=== PATIENT | male | born 1995 | race Hispanic/Latino ===

== ENCOUNTER 2017-11-11 11:07 | Emergency (ER) | payer SELFPAY ==
[2017-11-11 11:25] VITALS: TEMP 98.9
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
--- NOTE | 2017-11-11 11:58 | RAD ---
EXAM DESCRIPTION: FIVE VIEW CERVICAL SPINE CLINICAL HISTORY: NUMBNESS L HAND COMPARISON: None Available. TECHNIQUE: AP/lateral/ both oblique/open-mouth odontoid FINDINGS: There is good alignment of the cervical spine. There is no bone lesion or fracture. There are no significant degenerative changes. There is no soft tissue abnormality identified. IMPRESSION: Normal cervical spine series Electronically signed by: Adama Draper MD 11/11/2017 11:57 AM CDT
--- NOTE | 2017-11-11 11:59 | RAD ---
EXAM DESCRIPTION: Shoulder,Left 2 or More Views CLINICAL HISTORY: NUMBNESS L HAND COMPARISON: None. TECHNIQUE: 2 views left FINDINGS: Marked acromioclavicular and coracoclavicular ligament separation is observed. No fractures observed. The glenohumeral joint is unremarkable. IMPRESSION: Marked acromioclavicular and coracoclavicular ligament separation is observed. Electronically signed by: Adama Draper MD 11/11/2017 11:58 AM CDT
[2017-11-11 13:11] VITALS: BP 144/87; O2SAT 97
== END 2017-11-11 13:11 | disposition home or self-care (01) ==
LOC: ER 11:07
DX: S43.102A Unspecified dislocation of left acromioclavicular joint, initial encounter (principal); X58.XXXA Exposure to other specified factors, initial encounter

== ENCOUNTER 2018-12-13 17:37 | Emergency (ER) | payer SELFPAY ==
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
[2018-12-13] MEDS ORDERED: IBUPROFEN 200 MG TAB PO ONE (18:40)
[2018-12-13] MEDS ORDERED: CYCLOBENZAPRINE HCL 5 MG TAB PO ONE (18:40)
[2018-12-13 18:56] VITALS: BP 126/77; TEMP 98.4; O2SAT 97
== END 2018-12-13 18:56 | disposition home or self-care (01) ==
LOC: ER 17:37
DX: S13.4XXA Sprain of ligaments of cervical spine, initial encounter (principal); R51 Headache; E11.9 Type 2 diabetes mellitus without complications; V49.49XA Driver injured in collision with other motor vehicles in traffic accident, initial encounter; Y92.410 Unspecified street and highway as the place of occurrence of the external cause; Z79.84 Long term (current) use of oral hypoglycemic drugs; Z79.899 Other long term (current) drug therapy

== ENCOUNTER 2019-03-30 12:36 | Emergency (ER) | payer SELFPAY ==
[2019-03-30] MEDS ORDERED: IBUPROFEN 200 MG TAB PO ONE (12:52)
[2019-03-30] MEDS ORDERED: traMADol HCL 50 MG TAB PO ONE (12:52)
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
[2019-03-30 15:25] VITALS: BP 134/86; TEMP 97.9; O2SAT 95
== END 2019-03-30 14:55 | disposition home or self-care (01) ==
LOC: ER 12:36
DX: S46.012A Strain of muscle(s) and tendon(s) of the rotator cuff of left shoulder, initial encounter (principal); E11.9 Type 2 diabetes mellitus without complications; W17.89XA Other fall from one level to another, initial encounter; Z79.84 Long term (current) use of oral hypoglycemic drugs; Y92.9 Unspecified place or not applicable

== ENCOUNTER 2019-07-24 19:56 | Emergency (ER) | payer SELFPAY ==
[2019-07-24 20:09] VITALS: TEMP 99.1
--- NOTE | 2019-07-24 20:09 | ED.PDOC ---
History of Present Illness - General Chief Complaint: General Stated Complaint: fatigue, weak, N/V/D since 0230 Time Seen by Provider: 07/24/19 20:08 Source: patient - History of Present Illness Initial Comments: 23 yo male who presents with cc of nausea and vomiting and acute illness. Reports onset of illness at 2:30 am today with nausea and NBNB emesis x4 hours. Reports also cold sweats and chills but no fevers. Has been resting all day and sx's returned again at 4:30 pm after trying to eat a little food. States altogether has had about 6 episode of emesis. States also moderate upper abdominal cramping which is constant and worse with vomiting. Reports additionally watery diarrhea x3 today, sore throat, intermittent dry cough, generalized headache, body aches, malaise, fatigue. No known recent sick contacts, has not had flu shot. Tried Tylenol earlier with modest relief of headache. Allergies/Adverse Reactions: Allergies NO KNOWN ALLERGY Allergy (Verified 07/24/19 20:09) Home Medications: Ambulatory Orders RX: Metformin HCl [Metformin Hydrochloride] 1,000 mg PO BID 12/13/18 Ondansetron Odt [Zofran ODT] 8 mg PO Q8H PRN 3 Days #10 tab 07/24/19 Review of Systems - Review of Systems Review of Systems: 07/24/19 20:27 as per HPI All other Systems: Reviewed and Negative Past Medical History (General) - Patient Medical History Hx Stroke: No Hx of COPD: No Hx Cardiac Disorders: No Hx Congestive Heart Failure: No Hx Hypertension: No Hx Diabetes: Yes Hx Cancer: No - Vaccination History Hx Tetanus, Diphtheria Vaccination: No Hx Influenza Vaccination: No Hx Pneumococcal Vaccination: No - Social History Hx Tobacco Use: No Hx Alcohol Use: No Hx Substance Use: No Hx Substance Use Treatment: No Hx Depression: No - Female History Patient : No Family Medical History - Family History Father Living Status: Hx Family Diabetes: Yes Hx Family Cancer: Yes - dad-kidney Mother Family History: Unknown Living Status: Still Living Physical Exam - Physical Exam General Appearance: Alert, No apparent distress Eye Exam: bilateral normal Ears, Nose, Throat: hearing grossly normal, normal ENT inspection, normal pharynx Neck: non-tender, full range of motion, supple, normal inspection Respiratory: lungs clear, normal breath sounds, no respiratory distress Cardiovascular/Chest: normal peripheral pulses, regular rate, rhythm, no edema, no murmur Peripheral Pulses: radial,right: 2+, radial,left: 2+ Gastrointestinal/Abdominal: normal bowel sounds, no organomegaly, other - moderate ttp epigastric and LUQ, mild suprapubic ttp without guarding or rebound Back Exam: normal inspection, no CVA tenderness, no vertebral tenderness Extremity: normal range of motion, non-tender, normal inspection, no pedal edema, no calf tenderness, normal capillary refill 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 Consider also viral gastroenteritis vs strep vs viral URI vs pancreatitis vs UTI vs other -labs, place PIV, 1 L NS bolus, Zofran 4 mg IV, Toradol 30 mg IV for headache, strep, flu, UA 07/25/19 06:52 -Pt with neg flu & strep. Labs reveal slight AST/ALT elevation and T bili (indirect) elevation. CT A/P reveals hepatosplenomegaly, no other acute processes. [facility] is negative. Suspect LFT abnormalities due to acute viral illness. Discussed all the above at length with pt - he will need to f/u closely with PCP for repeat LFT's and for f/u of HSM. Advised no contact sports until cleared - discussed risks of possible splenic rupture while spleen is enlarged. -dc home in fair condition, feeling markedly improved, return warnings discussed at length. Hep panel acute sent and will follow Stewart Olivas MD Billing #[id number] - Results/Orders Results/Orders: 07/24/19 20:08 IV Care:Saline Lock per Protoc QSHIFT 07/24/19 20:55 STREP A SCREEN CULTURE Stat 07/24/19 21:04 Hold Metformin x 48Hrs [id number] 07/24/19 22:48 HEPATITIS ACUTE PROFILE, ABC Stat Laboratory Results - last 24 hr 07/24/19 07/24/19 07/24/19 20:15 20:15 20:15 WBC 7.3 RBC 5.30 Hgb 16.0 Hct 44.4 MCV 83.8 MCH 30.1 MCHC 35.9 RDW 13.0 Plt Count 144 MPV 8.2 Absolute Neuts (auto) 5.20 Absolute Lymphs (auto) 1.30 Absolute Monos (auto) 0.50 Absolute Eos (auto) 0.10 Absolute Basos (auto) 0.10 Neutrophils % 72.1 Lymphocytes % 18.3 L Monocytes % 6.6 Eosinophils % 1.9 Basophils % 1.1 Sodium 131 L Potassium 3.5 L Chloride 96 L Carbon Dioxide 23 Anion Gap 15.5 BUN 14 Creatinine 0.60 BUN/Creatinine Ratio 23.3 H Random Glucose 326 H Serum Osmolality Not Reportable Calcium 9.2 Total Bilirubin 1.7 H Direct Bilirubin < 0.1 Indirect Bilirubin 1.6 H AST 58 H ALT 99 H Alkaline Phosphatase 90 Serum Total Protein 7.9 Albumin 4.5 Lipase 38 Urine Color Urine Appearance Urine pH Ur Specific [place] Urine Protein Urine Glucose (UA) Urine Ketones Urine Blood Urine Nitrite Urine Bilirubin Urine Urobilinogen Ur Leukocyte Esterase Urine RBC Urine WBC Ur Epithelial Cells Urine Bacteria Monoscreen Negative Group A Strep Rapid 07/24/19 07/24/19 20:55 22:10 WBC RBC Hgb Hct MCV MCH MCHC RDW Plt Count MPV Absolute Neuts (auto) Absolute Lymphs (auto) Absolute Monos (auto) Absolute Eos (auto) Absolute Basos (auto) Neutrophils % Lymphocytes % Monocytes % Eosinophils % Basophils % Sodium Potassium Chloride Carbon Dioxide Anion Gap BUN Creatinine BUN/Creatinine Ratio Random Glucose Serum Osmolality Calcium Total Bilirubin Direct Bilirubin Indirect Bilirubin AST ALT Alkaline Phosphatase Serum Total Protein Albumin Lipase Urine Color Dk yellow Urine Appearance Clear Urine pH 5.5 Ur Specific [place] 1.010 Urine Protein 30 Urine Glucose (UA) 500 H Urine Ketones >=160 Urine Blood Trace-intact H Urine Nitrite Negative Urine Bilirubin Small H Urine Urobilinogen 2.0 H Ur Leukocyte Esterase Negative Urine RBC 0-1 Urine WBC 0-1 Ur Epithelial Cells 1-3 Urine Bacteria Rare Monoscreen Group A Strep Rapid Negative Departure - Departure Clinical Impression: Viral gastroenteritis, Hepatosplenomegaly, Elevated liver enzymes Time of Disposition: 22:27 Disposition: Discharge to Home or Self Care Condition: Fair Departure Forms: ED Discharge - Pt. Copy, Patient Portal Self Enrollment Instructions: Viral Gastroenteritis, Adult (DC) Diet: regular diet Activity: other - no contact sports or heavy physical activity until cleared by doctor Prescriptions: Ondansetron Odt [Zofran ODT] 8 mg PO Q8H PRN 3 Days #10 tab PRN Reason: Nausea Home Medications: Ambulatory Orders RX: Metformin HCl [Metformin Hydrochloride] 1,000 mg PO BID 12/13/18 Ondansetron Odt [Zofran ODT] 8 mg PO Q8H PRN 3 Days #10 tab 07/24/19 Additional Instructions: Follow up with your primary care doctor in next 5-7 days for repeat evaluation. You were noted to have elevation of your liver enzymes and an enlarged liver and spleen during this visit, which is likely due to acute illness but needs to be followed up closely in the clinic to check for other possible causes. Do not drink alcohol as this can be harmful to your liver. Return to the ED if you have worsening abdominal pain, nausea & vomiting, blood in the stool or large/frequent diarrhea, poor fluid intake, lack of urination for more than 8 hours, etc... Take the Zofran as directed for nausea. You will need doctor clearance before return to heavy physical activity or contact sports because of your large spleen. An injury to your abdomen could put you at risk for spleen rupture while it is enlarged which could be potentially life-threatening.
[2019-07-24] MEDS: SODIUM CHLORIDE 0.9% (FLUSH) 10 ML SYG IV PRN (20:34)
[2019-07-24] MEDS: KETOROLAC TROMETHAMINE INJ 30 MG/ML VIAL IV ONE (20:35)
[2019-07-24] MEDS: ONDANSETRON INJ 4 MG/2 ML VIAL IV ONE (20:35)
[2019-07-24] MEDS: SODIUM CHLORIDE 0.9% 1000ML 1,000 ML IVS ONE (20:35)
--- NOTE | 2019-07-24 21:56 | CT ---
PROCEDURE: Abdomen/Pelvis w/Contrast CLINICAL HISTORY: upper abd pain, n/v, elevated T bili TECHNIQUE: Contiguous axial images obtained through the abdomen and pelvis following the uneventful administration of IV contrast. Coronal and sagittal reformatted images were provided. This exam was performed according to our departmental dose-optimization program, which includes automated exposure control, adjustment of the mA and/or kV according to patient size and/or use of iterative reconstruction technique. COMPARISON: None available for comparison. FINDINGS: Lung bases: Clear Liver: The liver is enlarged and diffusely low in density compatible with steatosis. Gallbladder and biliary system: Unremarkable Pancreas: Unremarkable Spleen: The spleen is enlarged measuring 16.7 cm in craniocaudal dimension. Adrenals: Unremarkable Kidneys: Normal renal cortical enhancement. No calculi. No hydronephrosis. Bowel: No obstruction. No appreciable mucosal thickening. Appendix: Normal caliber appendix. No findings to suggest acute appendicitis. Urinary bladder: Unremarkable Reproductive: Unremarkable as visualized Lymph nodes: No pathologically enlarged lymph nodes. Peritoneum: No focal fluid collection. No free air. Vessels: No abdominal aortic aneurysm. Abdominal wall: Tiny fat-containing umbilical hernia. Bones: Mild multilevel spondylosis. No acute fracture. IMPRESSION: 1. No acute inflammatory process identified within the abdomen and pelvis. 2. Hepatosplenomegaly. Hepatic steatosis. 3. Other findings as above. Electronically signed by: Shaun Pizarro MD 07/24/2019 9:55 PM PODIATRY PROFESSOR
[2019-07-24] MEDS: ONDANSETRON ODT (ER DISP) 8 MG TAB PO ONE (22:52)
[2019-07-24 22:58] VITALS: BP 128/76; O2SAT 99
== END 2019-07-24 23:04 | disposition home or self-care (01) ==
LOC: ER 19:56
DX: A08.4 Viral intestinal infection, unspecified (principal); R16.2 Hepatomegaly with splenomegaly, not elsewhere classified; R94.5 Abnormal results of liver function studies; E11.9 Type 2 diabetes mellitus without complications; Z79.84 Long term (current) use of oral hypoglycemic drugs
CPT/HCPCS: 36415; 74177; 80048; 80074; 80076; 81001; 83690; 85025; 86403; 87070; 87502; 87880; J1885; J2405; J7030

== ENCOUNTER 2019-12-08 06:12 | Emergency (ER) | payer BC ==
[2019-12-08] MEDS ORDERED: SODIUM CHLORIDE 0.9% (FLUSH) 10 ML SYG IV PRN (06:31)
[2019-12-08] MEDS ORDERED: ONDANSETRON INJ 4 MG/2 ML VIAL IV ONE (06:31)
[2019-12-08] MEDS ORDERED: KETOROLAC TROMETHAMINE INJ 30 MG/ML VIAL IV ONE (06:31)
--- NOTE | 2019-12-08 06:35 | ED.PDOC ---
History of Present Illness - General Information Source: patient, RN notes reviewed, Vital Signs reviewed Exam Limitations: no limitations Additional Information: 24yo M no PMH with reported abdominal pain x 2 days. Reports pain is dull, intermittent, non-radiating located RUQ. Associated with non-bloody diarrhea. Otherwise denies fever, vomiting, chest pain, SOB, dysuria, testicular pain, sick contacts, recent travel, history of abdominal surgery. No other complaints at this time. - History of Present Illness Abdominal Pain Onset Location: RUQ Pain Radiation: no radiation Quality: moderate Improving Factors: nothing Worsening Factors: nothing Associated Symptoms: diarrhea <Eduardo Briceno - Last Filed: 12/08/19 07:03> <Oumar Herrera - Last Filed: 12/08/19 10:44> - General Chief Complaint: Abdominal Pain Stated Complaint: abdomen pain for 3 days Time Seen by Provider: 12/08/19 06:31 Review of Systems - Review of Systems Constitutional: States: no symptoms reported Respiratory: States: no symptoms reported Gastrointestinal/Abdominal: States: no symptoms reported, abdominal pain - RUQ Genitourinary: States: no symptoms reported Skin: States: no symptoms reported All other Systems: Reviewed and Negative <Eduardo Briceno Last Filed: 12/08/19 07:03> Past Medical History (General) - Patient Medical History Hx Seizures: No Hx Stroke: No Hx Dementia: No Hx Asthma: No Hx of COPD: No Hx Cardiac Disorders: No Hx Congestive Heart Failure: No Hx Pacemaker: No Hx Hypertension: No Hx Thyroid Disease: No Hx Diabetes: Yes Hx Gastroesophageal Reflux: No Hx Renal Disease: No Hx Cancer: No Hx of HIV: No Hx MRSA: No - Vaccination History Hx Tetanus, Diphtheria Vaccination: No Hx Influenza Vaccination: No Hx Pneumococcal Vaccination: No - Social History Hx Tobacco Use: No Hx Alcohol Use: No Hx Substance Use: No Hx Substance Use Treatment: No Hx Depression: No - Female History Patient : No <Eduardo Briceno Last Filed: 12/08/19 07:03> Family Medical History - Family History Father Living Status: Hx Family Diabetes: Yes Hx Family Cancer: Yes - dad-kidney Mother Family History: Unknown Living Status: Still Living <Eduardo Briceno - Last Filed: 12/08/19 07:03> Physical Exam - Physical Exam General Appearance: Alert, No apparent distress, Well Developed, Well Nourished Eyes, Ears, Nose, Throat Exam: PERRL/EOMI Neck: non-tender, full range of motion, supple Respiratory: chest non-tender, lungs clear, normal breath sounds Cardiovascular/Chest: regular rate, rhythm, no edema, no murmur Gastrointestinal/Abdominal: normal bowel sounds, non tender, soft Back Exam: no CVA tenderness Extremity: normal range of motion, no pedal edema Neurologic: soda column operator II-XII nml as tested, alert, normal mood/affect Skin Exam: normal color, warm/dry <Eduardo Briceno - Last Filed: 12/08/19 07:03> - Physical Exam Comments: Vital Signs - 24 hr 12/08/19 12/08/19 12/08/19 06:20 06:29 07:12 Temperature 98.2 F Pulse Rate [ 87 65 monitor] Respiratory 18 18 16 Rate Blood Pressure 155/94 132/62 [left forearm] O2 Sat by Pulse 100 97 Oximetry 12/08/19 12/08/19 12/08/19 08:00 09:00 10:00 Temperature Pulse Rate [ 69 66 72 monitor] Respiratory 16 16 18 Rate Blood Pressure 132/62 132/67 141/74 [left forearm] O2 Sat by Pulse 96 97 99 Oximetry <Oumar Herrera - Last Filed: 12/08/19 10:44> Progress - Progress Progress: 12/08/19 10:37 The patient is a 24-year-old male presents emergency room with abdominal pain. The patient has significant uncontrolled diabetes and dehydration related to that. This is probably what is been giving him his abdominal discomfort. He received a liter of IV fluids and a shot of insulin. He is doing a little better by time of discharge. He is to record his blood sugars twice daily before meals. He is to continue the metformin for now. This may be the source of some of his diarrhea however. I am going to add low-dose glipizide to the patient. He needs to follow back up with his primary care doctor next week for reevaluation of his diabetes management. He also needs to maintain a diabetic diet. The patient does have a fatty liver as noted on the ultrasound. He may benefit from significant weight loss to prevent long-term damage to the liver. No evidence of any significant gallbladder disease. No evidence of any infectious process otherwise at this time. ER warnings are given for any worsening. 12/08/19 10:38 oumar herrera [id number] - Results/Orders Results/Orders: Right upper quadrant ultrasound shows mild hepatic steatosis with associated hepatomegaly. 4 mm gallbladder polyp and common bile duct is 2.5 mm. Laboratory Tests 12/08/19 12/08/19 12/08/19 06:40 06:40 06:40 WBC 6.7 RBC 5.48 Hgb 15.8 Hct 45.6 MCV 83.3 MCH 28.9 MCHC 34.7 RDW 12.8 Plt Count 180 MPV 8.2 Absolute Neuts (auto) 3.10 Absolute Lymphs (auto) 3.00 Absolute Monos (auto) 0.40 Absolute Eos (auto) 0.20 Absolute Basos (auto) 0.10 Neutrophils % 45.8 Lymphocytes % 43.9 Monocytes % 6.0 Eosinophils % 3.0 Basophils % 1.3 Sodium 130 L Potassium 3.9 Chloride 99 L Carbon Dioxide 23 Anion Gap 11.9 L BUN 24 H Creatinine 0.60 BUN/Creatinine Ratio 40.0 H Random Glucose 380 H Serum Osmolality 280.5 Calcium 9.0 Total Bilirubin 0.7 Direct Bilirubin 0.1 Indirect Bilirubin 0.6 AST 36 ALT 67 H Alkaline Phosphatase 92 Serum Total Protein 7.2 Albumin 4.1 Lipase 44 Urine Color Urine Appearance Urine pH Ur Specific [place] Urine Protein Urine Glucose (UA) Urine Ketones Urine Blood Urine Nitrite Urine Bilirubin Urine Urobilinogen Ur Leukocyte Esterase Urine RBC Urine WBC Ur Epithelial Cells Urine Bacteria 12/08/19 06:40 WBC RBC Hgb Hct MCV MCH MCHC RDW Plt Count MPV Absolute Neuts (auto) Absolute Lymphs (auto) Absolute Monos (auto) Absolute Eos (auto) Absolute Basos (auto) Neutrophils % Lymphocytes % Monocytes % Eosinophils % Basophils % Sodium Potassium Chloride Carbon Dioxide Anion Gap BUN Creatinine BUN/Creatinine Ratio Random Glucose Serum Osmolality Calcium Total Bilirubin Direct Bilirubin Indirect Bilirubin AST ALT Alkaline Phosphatase Serum Total Protein Albumin Lipase Urine Color Yellow Urine Appearance Clear Urine pH 7.0 Ur Specific [place] 1.025 Urine Protein Negative Urine Glucose (UA) 500 H Urine Ketones 15 H Urine Blood Trace-intact H Urine Nitrite Negative Urine Bilirubin Negative Urine Urobilinogen 0.2 Ur Leukocyte Esterase Negative Urine RBC 0-1 Urine WBC 3-5 H Ur Epithelial Cells 0-1 Urine Bacteria 0 <Oumar Herrera L - Last Filed: 12/08/19 10:44> Departure <Eduardo Briceno - Last Filed: 12/08/19 07:03> - Departure Diet: diabetic diet Activity: increase activity as tolerated <Oumar Herrera - Last Filed: 12/08/19 10:44> - Departure Clinical Impression: Hepatic steatosis, Dehydration, Abdominal cramping Uncontrolled type 2 diabetes mellitus Qualifiers: Glycemic state: with hyperglycemia Qualified Code(s): E11.65 - Type 2 diabetes mellitus with hyperglycemia Disposition: Discharge to Home or Self Care Condition: Fair Departure Forms: ED Discharge - Pt. Copy, Patient Portal Self Enrollment Instructions: Type 2 Diabetes, Diabetes Diet Prescriptions: glipiZIDE [Glucotrol] 5 mg PO DAILY #20 tab Home Medications: Ambulatory Orders Metformin HCl [Metformin Hydrochloride] 1,000 mg PO BID 12/13/18 glipiZIDE [Glucotrol] 5 mg PO DAILY #20 tab 12/08/19 Additional Instructions: The patient is a 24-year-old male presents emergency room with abdominal pain. The patient has significant uncontrolled diabetes and dehydration related to that. This is probably what is been giving him his abdominal discomfort. He received a liter of IV fluids and a shot of insulin. He is doing a little better by time of discharge. He is to record his blood sugars twice daily before meals. He is to continue the metformin for now. This may be the source of some of his diarrhea however. I am going to add low-dose glipizide to the patient. He needs to follow back up with his primary care doctor next week for reevaluation of his diabetes management. He also needs to maintain a diabetic diet. The patient does have a fatty liver as noted on the ultrasound. He may benefit from significant weight loss to prevent long-term damage to the liver. No evidence of any significant gallbladder disease. No evidence of any infectious process otherwise at this time. ER warnings are given for any worsening.
[2019-12-08] MEDS ORDERED: INSULIN LISPRO 100 UNITS/ML PEN SUBCU ONE (08:24)
[2019-12-08] MEDS ORDERED: SODIUM CHLORIDE 0.9% 1000ML 1,000 ML IVS ONE (08:24)
--- NOTE | 2019-12-08 10:13 | US ---
EXAM DESCRIPTION: Abdomen,Limited CLINICAL HISTORY: ruq pain diarrhea COMPARISON: Previous study July 24, 2019 TECHNIQUE: Right upper quadrant ultrasound FINDINGS: Pancreas: Visualized portions of the pancreas are unremarkable. Bowel gas obscures some areas. Aorta/inferior vena cava: No aortic aneurysm. Normal inferior vena cava. Liver: The liver is homogeneous in texture with increased echogenicity consistent with diffuse hepatic steatosis. Elongated liver consistent with hepatomegaly with liver length of 19.7 cm. No focal liver lesion or intrahepatic bile duct dilatation. No liver surface irregularity. Normal appearance of the portal vein and hepatic veins. Gallbladder: Gallbladder appears normal with no shadowing intraluminal stones or wall thickening. Tiny polyp in the gallbladder 4 mm. Common bile duct: Normal caliber measuring 2.5 mm. Right kidney: Renal length is 12.8 cm. Normal cortical echogenicity. Cortical thickness is normal. No hydronephrosis is seen. No renal mass or shadowing calculus. IMPRESSION: Enlarged hyperechoic liver consistent with diffuse hepatic steatosis. Gallbladder polyp measures 4 mm. Electronically signed by: Manuel Browne MD 12/08/2019 10:11 AM CDT
[2019-12-08 11:00] VITALS: BP 155/83; TEMP 97.5; O2SAT 98
== END 2019-12-08 11:00 | disposition home or self-care (01) ==
LOC: ER 06:12
DX: K76.0 Fatty (change of) liver, not elsewhere classified (principal); E11.65 Type 2 diabetes mellitus with hyperglycemia; E86.0 Dehydration; R10.11 Right upper quadrant pain
CPT/HCPCS: 36415; 36416; 76775; 80048; 80076; 81001; 82948; 83690; 85025; J1815; J1885; J2405; J7030